=== PATIENT | male | born 1945 | race Caucasian/White ===

== ENCOUNTER 2018-06-16 06:25 | Inpatient (IN) | payer OTHER ==
[~2018-06-16] VITALS: Ht 180.3 cm; Wt 89.5 kg
[~2018-06-16 06:25] MED LIST: ALPRAZOLAM 0.50.5 M1 PO; ASPIR 8181 MG PO; ATROPINE 1%1 %/2 M1 OPHTHALMIC; BETIMOL15 ML OPHTHALMIC; CADUET 10 MG-21 EACH PO; CARVEDILOL25 MG PO; COZAAR 50 MG TA50 M2 PO; EYE ALLERGY REL15 ML OPHTHALMIC; FISH OIL 1,001000 M2 PO; GLUCOTROL5 MG PO; METFORMIN HCL500 MG PO; ONGLYZA5 MG PO
[2018-06-16 06:37] VITALS: BP 172/103
--- NOTE | 2018-06-16 07:45 | EKG ---
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1945 Requested By: Angie Kee Order Number: [id number] MD: Chucky Harding Measurements Intervals [place] Rate: 108 P: 47 CT: 166 QRS: -8 QRSD: 93 T: 54 QT: 342 QTc: 459 Interpretive Statements Sinus tachycardia Poor R wave progression Compared to ECG 12/29/2013 09:37:02 heart rate has increased Electronically Signed On 06-16-2018 7:45:33 STUNTMAN by Chucky Harding [email or web address] ��������������������������������������������� <ELECTRONICALLY SIGNED> ���������������������������������������� By: Chucky Harding MD, [facility] ��������������������������������������������� 06/16/18 0745 4 4 Chucky Harding MD, FACC /EPI
[2018-06-16] MEDS ORDERED: ATORVASTATIN CA40 MG PO (08:26)
[2018-06-16] MEDS ORDERED: NORVASC10 MG PO (08:28)
[2018-06-16] MEDS ORDERED: ACULAR 0.5% EYE5 ML OPHTHALMIC (08:36)
[2018-06-16 09:36] LABS: ABSOLUTE NEUTROPHILS 8.8 thou/uL (1.4-8.2); BASOPHILS 0.7 % (0.0-2.0); EOSINOPHILS 0.6 % (0.0-3.0); HEMATOCRIT 39.2 % (42.0-52.0); HEMOGLOBIN 13.3 gm/dL (14.0-18.0); LYMPHOCYTES 8.8 % (24.0-44.0); MCH 31.4 pg (26.0-34.0); MCV 92.2 fL (80.0-100.0); MONOCYTES 7.3 % (1.0-8.0); PLATELET COUNT 179 thou/uL (150-400); POLYS 82.6 % (36.0-66.0); RBC 4.25 mil/uL (4.50-6.00); RDW 14.2 % (10.5-14.5); WBC 10.7 thou/uL (4.0-11.0)
[2018-06-16 09:51] LABS: CHOLESTEROL 163 mg/dL (<200); HDL CHOLESTEROL 75 mg/dL (>40); LDL CHOLESTEROL 77 mg/dL (<100); TC:HDL 2.2 Ratio (Not establshd); TRIGLYCERIDE 59 mg/dL (<150); VLDL 12 mg/dL (<40)
[2018-06-16 09:52] LABS: ALBUMIN 2.3 g/dL (3.4-5.0); CALCIUM 8.6 mg/dL (8.5-10.1); CREATININE 2.4 mg/dL (0.7-1.3); POTASSIUM 4.8 mmol/L (3.5-5.1); TOTAL BILIRUBIN 0.4 mg/dL (<0.1-1.0); TOTAL PROTEIN 6.2 g/dL (6.4-8.2)
[2018-06-16 12:13] VITALS: BP 170/103
--- NOTE | 2018-06-16 12:45 | 2DMMODE ---
[facility] [address] [place] [address] 2 D/M-MODE ECHOCARDIOGRAM Name: MARIA C MARTIN CORDELL Room #: [facility] ..#: [id number] ������������� Admission: 06/16/18 ������������� Attend Phys: Arslan Chambers MD Discharge: ��� ������������� ��� Date of : 49 Date of Service: 06/16/18 1244 �� Report #: [id number] �������� ��������������������������������������������[id number] THIS REPORT FOR: //name// APPROVED REPORT Study performed: 06/16/2018 08:58:32 EXAM: Comprehensive 2D, Doppler, and color-flow Echocardiogram Patient Location: Bedside Room #: 211 Status: routine BSA: 2.10 HR: 116 bpm BP: 172/103 mmHg Rhythm: Tachycardia Other Information Study Quality: Adequate Risk Factors: Cardiac Risk Factors: HTN, Hyperlipidemia, DM Indications Dyspnea Elevated Troponin Cardiomyopathy 2D Dimensions IVSd: 12.37 (7-11mm) LVOT Diam: 21.00 (18-24mm) LVDd: 41.94 mm PWd: 11.72 (7-11mm) Ascending Ao: 35.46 (22-36mm) LVDs: 30.91 (25-40mm) Aortic Root: 30.94 mm LV Single Plane 4CH: 44.72 % LV Single Plane 2CH: 43.71 % Biplane EF: 44.1 % Volumes Left Atrial Volume (Systole) Single Plane 4CH: 59.55 mL Single Plane 2CH: 72.34 mL LA ESV Index: 33.00 mL/m2 Aortic Valve AoV Peak Neel.: 1.63 m/s AO Peak Gr.: 10.63 mmHg LVOT Max P.39 mmHg [facility] [address] [place] [address] 2 D/M-MODE ECHOCARDIOGRAM Name: MARIA C MARTIN Room #: 211[facility]P [facility]#: [id number] ������������� Admission: 06/16/18 ������������� Attend Phys: Arslan Chambers MD Discharge: ��� ������������� ��� Date of : 49 Date of Service: 06/16/18 1244 �� Report #: [id number] �������� ��������������������������������������������[id number] LVOT Max V: 0.77 m/s ZACHARY Vmax: 1.67 cm2 Mitral Valve E/A Ratio: 0.0 MV E Max Neel.: 1.40 m/s IVRT: 62.28 ms TDI E/Lateral E': 17.50 E/Medial E': 15.56 Medial E' Neel.: 0.09 m/s Lateral E' Neel.: 0.08 m/s Pulmonary Valve PV Peak Neel.: 1.38 m/s PV Peak Gr.: 7.57 mmHg Tricuspid Valve RAP Estimate: 7.00 mmHg Left Ventricle The left ventricle is normal size. Distal septal and apical hypokinesis. Mild concentric left ventricular hypertrophy. Left ventricular systolic function is mildly decreased. LVEF is 45%. Right Ventricle The right ventricle is normal size. The right ventricular systolic function is normal. Atria The left atrium size is normal. The right atrium size is normal. Aortic Valve The aortic valve is normal in structure. No aortic regurgitation is present. There is no aortic valvular stenosis. Mitral Valve Mild-moderate mitral annular calcification. Mild mitral regurgitation. No evidence of mitral valve stenosis. Tricuspid Valve The tricuspid valve is normal in structure. There is no tricuspid valve regurgitation noted. Pulmonic Valve [facility] [address] [place] [address] 2 D/M-MODE ECHOCARDIOGRAM Name: MARIA C MARTIN Room #: 211[facility]P [facility] M.R.#: [id number] ������������� Admission: 06/16/18 ������������� Attend Phys: Arslan Chambers MD Discharge: ��� ������������� ��� Date of : 49 Date of Service: 06/16/18 1244 �� Report #: [id number] �������� ��������������������������������������������[id number] The pulmonary valve is normal in structure. There is no pulmonic valvular regurgitation. Great Vessels The aortic root is normal in size. IVC is normal in size and collapses >50% with inspiration. Pericardium There is no pericardial effusion. <Conclusion> Left ventricular systolic function is mild-moderately decreased. Distal septal and apical hypokinesis. LVEF 45%. The aortic valve is normal in structure. No aortic regurgitation or stenosis Mild-moderate mitral annular calcification. Mild mitral regurgitation. Pulmonary artery pressure could not be reliably ascertained There is no pericardial effusion. ��������������������������������������������� <ELECTRONICALLY SIGNED> ���������������������������������������� By: Chucky Harding MD, [facility] ��������������������������������������������� 06/16/18 1244 1244 1244 Chucky Harding MD, FAC /INF
--- NOTE | 2018-06-16 15:31 | NUR ---
VSS REMAINS NSR TO ST 90-110, BP 170'S/90-100, LUNGS REMAIN WHEEZY, O2 SAT 2L IS 93%, PT STILL HAS COUGH, BACK PAIN RELIEVED WITH TYLENOL WITH CODEINE. UP IN ROOM INDEPENDENTLY AND NO C/O CHEST PAIN. WILL CONTINUE TO MONITER AND CARE FOR PTPER PLAN OF CARE
[2018-06-16 16:41] VITALS: BP 170/97
[2018-06-16 20:17] VITALS: BP 170/95
[2018-06-16 23:07] LABS: GLYCOHEMOGLOBIN (HGB A1C) 6.1 % (4.8-5.6)
--- NOTE | 2018-06-16 23:55 | NUR ---
PT CARE ASSUMED APPROX 1900. PT ALERT AND ORIENTED X4. DENIES SOA AND CHEST PAIN BUT C/O 8/10 HEADACHE PAIN. PAIN MANAGED WITH TYLENOL 3. PT REPORTS NAUSEA WELL. NAUSEA MANAGED WITH ZOFRAN. BP SLIGHTLY ELEVATED BUT TREND MUCH IMPROVED. VS OTHERWISE STABLE. BS ELEVATED AT HS. SSI USED TO MANAGE. UP WITH STEADY GAIT. PT CARE TO BE TRANSFERRED TO ONCOMING NURSE AT 0100. NO PT DISTRESS NOTED.
[2018-06-17 00:46] VITALS: BP 169/85
[2018-06-17 03:44] LABS: ALBUMIN 2.1 g/dL (3.4-5.0); CALCIUM 8.9 mg/dL (8.5-10.1); CREATININE 2.6 mg/dL (0.7-1.3); MAGNESIUM 1.7 mg/dL (1.8-2.4); POTASSIUM 5.2 mmol/L (3.5-5.1); TOTAL BILIRUBIN 0.5 mg/dL (<0.1-1.0); TOTAL PROTEIN 5.8 g/dL (6.4-8.2)
[2018-06-17 03:56] LABS: TROPONIN-I 21.77 ng/mL (<0.06)
[2018-06-17 04:12] VITALS: BP 189/118
--- NOTE | 2018-06-17 06:00 | NUR ---
ASSUMED PT CARE AT 0115. REPORT RECEIVED FROM ALIDA AARON. AM REASSESSMENT PT DENIES ANY CHEST PAIN. NOTED BP 189/118 LEFT ARM WITH NEAR SIMILAR VALUE IN THE RIGHT ARM. CRITICAL TROP CALLED AT 21.77 DID SPEAK WITH FISH PITCHER AND WITH DR. BUNN. BLOOD PRESSURE AND TROP VALUE REPORTED. ORDERS RECEIVED. CONTINUE TO MONITOR.
[2018-06-17 07:13] VITALS: BP 186/108
--- NOTE | 2018-06-17 09:17 | EKG ---
[address] [address] ELECTROCARDIOGRAM REPORT Name: MARIA C MARTIN Room #: 211-P ADM IN M.R.#: [id number] ������������������ Admission: 06/16/18 ������������������ Attend Phys: Arslan Chambers MD Discharge: ������������������ Date of : 49 Report #: [id number] ����������������������������������������������������������������� [id number] THIS REPORT FOR: //name// 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1945 Requested By: Chucky Harding Order Number: [id number] MD: Chucky Harding Measurements Intervals [place] Rate: 99 P: 45 DC: 160 QRS: -5 QRSD: 87 T: 52 QT: 352 QTc: 452 Interpretive Statements Sinus rhythm Poor R wave progression Compared to ECG 06/16/2018 07:25:08 Myocardial infarct finding now present Sinus tachycardia no longer present Electronically Signed On 06-17-2018 9:17:24 FACTORY CLERK by Chucky Harding [email or web address] ��������������������������������������������� <ELECTRONICALLY SIGNED> ���������������������������������������� By: Chucky Harding MD, [facility] ��������������������������������������������� 06/17/18916 1 1 Chucky Harding MD, [facility] /EPI
[2018-06-17 11:25] VITALS: BP 153/87
--- NOTE | 2018-06-17 14:03 | NUR ---
ORDERS RECEIVED FOR EVAL AND TREAT. OBSERVED Pt STAND AND AMBULATE IN ROOM WITHOUT ANY DIFFICULTY. Pt STATES HE FEELS FINE WITH REGARD TO HIS STRENGTH AND MOBILITY. DECLINING A FORMAL P.T. EVAL BUT Pt APPEARS SAFE FOR HOME WHEN MEDICALLY CLEAR
[2018-06-17 15:44] VITALS: BP 152/91
--- NOTE | 2018-06-17 16:53 | NUR ---
PT CARE ASSUMED APPROX 0700. PT ALERT AND ORIENTED X4.DENIES PAIN AND SOA. VSS. BS ELEVATED THIS SHIFT. CONTROLLING BS WITH SSI. PT UP WITH STEADY GAIT. IV ABT REMAINS IN POC. NITRO PASTE ON. AT BEDSIDE MOST OF SHIFT, NOT AT THIS TIME. BOTH DENIES QUESTIONS OR CONCERNS REGARDING POC. NO DISTRESS NOTED.
--- NOTE | 2018-06-17 18:39 | HC ---
[facility] [place] [address] CONSULTATION Name: MARIA C MARTIN Room #: 211-P [facility] IN M.R.#: [id number] Admission: 06/16/18 ������������������ Attend Phys: Arslan Chambers MD Discharge: ������������������ Date of : 49 Report #: [id number] THIS REPORT FOR: //name// CC: Arslan Chambers Physician staff Theo Juarez REASON FOR CONSULTATION: I was asked to evaluate concerning pneumonia in the setting of cardiac ischemia. HISTORY OF PRESENT ILLNESS: The patient is a 72-year-old with underlying history of coronary artery disease, hypertension, chronic kidney disease, diabetes, who has had a 1-week history of sinus congestion, postnasal drip, cough and progressive shortness of breath. Over the last 3 days, the patient has had intermittent episodes of back pain. He noticed that this onset was after he took an clib-hlh-qlcotnh cold medicine. Initially lasted about 3 hours. When he took a second dose of medication it happened again, but this time it did not improve and he was brought in through the Emergency Room first at [place] and then transferred to [facility] for non-STEMI. He continues to have a mid posterior back discomfort. He has been evaluated by Cardiovascular medicine. No further cardiac intervention was recommended other than placed on nitrates. He has had no documented fever. He has had no chills or sweats. He does require 2 liters of oxygen per nasal cannula, which is new for him. He reports his pain to be bxfu-gq-eelevsoa in degree with no radiation. He has had no pain in his jaw or left arm. He has had one episode of nausea with emesis. This was after he received the morphine. He has had cough with occasional blood tinge. The cough has expectorated mostly brown colored sputum. He has had mild epistaxis, some postnasal drip. No dental issues, the patient wears dentures. He has had no trauma. He has reported no pleuritic chest pain. Denies any travel. His has had an upper respiratory tract infection around the time of his illness. He has been exposed to no young children. He had 3 previous pneumonias. ALLERGIES: CONTRAST DYE, SULFA. MEDICATIONS: As noted on his MAR, now on azithromycin and ceftriaxone. 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 He is edentulous. He has had tonsillectomy. Carpal tunnel syndrome, status post release as well as ulnar release on the left. FAMILY HISTORY: Noncontributory. SOCIAL HISTORY: He is a past smoker. No significant alcohol intake. [facility] [address] [place] [address] CONSULTATION Name: MARIA C MARTIN Room #: 211-P [facility] IN M.R.#: [id number] Admission: 06/16/18 ������������������ Attend Phys: Arslan Chambers MD Discharge: ������������������ Date of : 49 Report #: [id number] REVIEW OF SYSTEMS: Ten-point review was negative other than what has been described above. PHYSICAL EXAMINATION: VITAL SIGNS: He was afebrile, temperature was 98 degrees, blood pressure 172/103, heart rate 110, respiratory rate 24, on 2 liters of oxygen per nasal cannula. GENERAL: He is alert and cooperative and pleasant, in no acute distress. He was able to communicate well. No dyspnea during my evaluation was noted. He appeared his stated age. HEENT: He had ____ of his cornea on the left. Right eye was unremarkable with no conjunctivitis or scleral icterus. Mouth edentulous with no mucositis. NECK: Supple with no thyromegaly, mass, or JVD. SKIN: Without rash or decubitus. He had some scarring to his anterior tibial regions bilaterally. No palpable adenopathy. LUNGS: Scattered fine rhonchi heard posterior bases as well as left anterior lower chest. No rub. HEART: Tachycardic, regular without appreciable murmur, gallop or rub. ABDOMEN: Soft, nontender, no hepatosplenomegaly or mass. GENITORECTAL: Not performed. EXTREMITIES: 1+ peripheral edema on the right, trace on the left. Pulses in his feet were normal. He had high arches with some pressure calluses involving his metatarsal heads 4 and 5. Sensation intact. Cranial nerves intact. Mood was normal. LABORATORY STUDIES: Chest x-ray is pending. Troponin is 1.6, sodium 141, potassium 4.8, bicarbonate 20, creatinine 2.4, AST was 45. Hemoglobin 13.3, platelet count of 179,000, white count was 10.7. Differential was 82% segs, 8% lymphs, 7% monocytes. EKG, poor R-wave progression. IMPRESSION: A 72-year-old with suspected community-acquired pneumonia complicated by hypertension and non-STEMI. He has chronic kidney disease. He has diabetes. RECOMMENDATIONS: We will continue IV antibiotic therapy with azithromycin, ceftriaxone and add Tamiflu. Obtain sputum culture, urine antigens. Continue treatment in the CCU. Follow up chest x-ray. We will screen for viral respiratory panel. Influenza antigen will be done as well. ��������������������������������������������� <ELECTRONICALLY SIGNED> ���������������������������������������� By: Tong Grijalva MD ��������������������������������������������� 06/17/18 1839 1126 2157 Tong Grijalva MD /azra
[2018-06-17 19:52] VITALS: BP 176/106
[2018-06-18 00:09] VITALS: BP 165/105
[2018-06-18 04:09] VITALS: BP 172/110
[2018-06-18 04:14] LABS: CALCIUM 8.2 mg/dL (8.5-10.1); CREATININE 3.1 mg/dL (0.7-1.3); POTASSIUM 4.7 mmol/L (3.5-5.1)
--- NOTE | 2018-06-18 05:42 | NUR ---
ASSUMED CARE OF PATIENT AT 1900. BP ELEVATED THROUGH THE NIGHT. TREATED WITH CLONIDINE, LITTLE TO NO EFFECT. DENIES PAIN RELATED TO MA. UP AD NEMESIO TO BATHROOM. EDUCATED ON MEDICATIONS BEING GIVEN. WORKING TOWARDS POC GOALS.
[2018-06-18 07:19] VITALS: BP 180/101
--- NOTE | 2018-06-18 08:37 | EKG ---
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1945 Requested By: Chucky Harding Order Number: [id number] MD: Chucky Harding Measurements Intervals [place] Rate: 88 P: 14 [place]: 145 QRS: -12 QRSD: 92 T: 54 QT: 350 QTc: 424 Interpretive Statements Sinus rhythm Atrial premature complex Poor R wave progression Compared to ECG 06/17/2018 07:12:49 Atrial premature complex(es) now present Electronically Signed On 06-18-2018 8:37:45 [employer] by Chucky Harding [email or web address] ��������������������������������������������� <ELECTRONICALLY SIGNED> ���������������������������������������� By: Chucky Harding MD, [facility] ��������������������������������������������� 06/18/18 0837 9 9 Chucky Harding MD, [facility] /EPI
[2018-06-18 11:40] VITALS: BP 148/92
[2018-06-18 15:25] VITALS: BP 166/97
[2018-06-18 15:46] LABS: URINE BILIRUBIN NEGATIVE (Negative); URINE BLOOD 1+ (Negative); URINE CLARITY CLEAR; URINE COLOR YELLOW; URINE GLUCOSE-RANDOM* 1+ (Negative); URINE KETONES NEGATIVE (Negative); URINE LEUKOCYTES NEGATIVE (Negative); URINE NITRITE NEGATIVE (Negative); URINE PROTEIN (DIPSTICK) 2+ (Negative); URINE UROBILINOGEN 0.2 E.U./dl (0.2-1.0)
[2018-06-18 15:54] LABS: PROT/CREAT RATIO 4.7; URINE CREATININE-RANDOM* 67.5 mg/dL; URINE PROTEIN-RANDOM* 317.8 mg/dL (<11.9)
[2018-06-18 15:56] LABS: SQUAMOUS 0-3 Few /LPF (0-3); URINE WBC 0-5 Rare /HPF (0-5)
[2018-06-18 15:57] LABS: BACTERIA None Seen /HPF (None Seen); CRYSTALS None Seen /LPF (None Seen); HYALINE CASTS 0-3 Few /LPF (None Seen); URINE RBC 0-2 Rare /HPF (0-2)
[2018-06-18 19:24] VITALS: BP 160/88
--- NOTE | 2018-06-18 19:51 | NUR ---
ASSUMED PATIENT CARE THIS AM. PATIENT LYING IN BED, A&O. ROOM AIR. UP AD NEMESIO. TOLERATING DIET. NO N/V, N/T OR PAIN STATED.
[2018-06-19 04:28] VITALS: BP 162/95
[2018-06-19 05:23] LABS: ALBUMIN 1.7 g/dL (3.4-5.0); CALCIUM 8.7 mg/dL (8.5-10.1); CREATININE 2.9 mg/dL (0.7-1.3); PHOSPHORUS 4.3 mg/dL (2.5-4.9); POTASSIUM 4.3 mmol/L (3.5-5.1)
--- NOTE | 2018-06-19 05:35 | NUR ---
pt resting quietly in room, vss, prn pain med given this am for c/o headache, will con't to monitor per ppoc.
[2018-06-19 08:00] VITALS: BP 166/77
[2018-06-19] MEDS ORDERED: CEFDINIR300 MG PO (14:29)
[2018-06-19] MEDS ORDERED: BENICAR40 MG PO (15:20)
[2018-06-19] MEDS ORDERED: IMDUR 60 MG TAB60 M1 PO (15:20)
[2018-06-19 15:31] VITALS: BP 166/77
--- NOTE | 2018-06-19 16:11 | NUR ---
ASSESSMENTS COMPLETED AND DOCUMENTED. NO S/SX OF RESP OR CARDIAC DISTRESS. PT DISCARGED TO HOME WITH SPOUSE. ALL BELONGINGS WITH PT AND DISCHARGE INSTRUCTIONS GIVEN. RX CALLED INTO [facility] IN [place]. IV AND TELE REMOVED.
--- NOTE | 2018-06-19 16:40 | EKG ---
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1945 Requested By: Chucky Harding Order Number: [id number] MD: Leonid Rogers Measurements Intervals [place] Rate: 88 P: 7 W[place]: 146 QRS: -17 QRSD: 91 T: 50 QT: 355 QTc: 430 Interpretive Statements Sinus rhythm Borderline left axis deviation Borderline T wave abnormalities Compared to ECG 06/18/2018 07:10:00 T-wave abnormality now present Atrial premature complex(es) no longer present Poor R-wave progression no longer present Electronically Signed On 06-19-2018 16:39:55 GRADUATE RN by Leonid Rogers [email or web address] ��������������������������������������������� <ELECTRONICALLY SIGNED> ���������������������������������������� By: Leonid Rogers MD ��������������������������������������������� 06/19/18 1639 0659 0659 Leonid Rogers MD /EPI
[2018-06-19 23:09] LABS: ADENOVIRUS Negative (Negative); INFLUENZA A Negative (Negative); INFLUENZA B Negative (Negative); METAPNEUMOVIRUS Negative (Negative); PARAINFLUENZA 1 Negative (Negative); PARAINFLUENZA 2 Negative (Negative); PARAINFLUENZA 3 Negative (Negative); RHINOVIRUS Negative (Negative); RSV A Negative (Negative); RSV B Negative (Negative)
--- NOTE | 2018-06-20 11:28 | HC ---
[facility] [place] [address] [place] [address] CONSULTATION Name: MARIA C MARTIN Room #: 211-P [facility] IN ..#: [id number] Admission: 06/16/18 ������������������ Attend Phys: Arslan Chambers MD Discharge: 06/19/18 ������������������ Date of : 49 Report #: [id number] THIS REPORT FOR: //name// CC: Arslan Chambers Physician staff Theomoises Juarez DATE OF SERVICE: 06/18/2018 REASON FOR CONSULTATION: Acute and chronic kidney disease. HISTORY OF PRESENT ILLNESS: A 72-year-old patient with longstanding diabetes, prior TN in 2003, prior coronary stents at this hospital. Had a subsequent heart catheterization 5-6 years ago at this hospital, which showed some chronic blockages, but no intervention. The patient developed an upper respiratory infection, had back pain, which was felt to be an anginal equivalent; was admitted to this hospital, was found to have a non-ST elevation TN with elevated troponin all the way to almost 22 and has chronic kidney disease followed by Dr. Souza in [place] with a baseline creatinine of 2.5-3. Apparently, the EKG did not show acute findings. Echocardiogram performed by Dr. Harding showed left ventricular ejection fraction of 45% with distal septal and apical hypokinesis. No valvular disease was noted. Currently, the patient's creatinine is 3.1 and we are seeing him for evaluation. 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 He has had hypertension, diabetes and CKD as mentioned above. SOCIAL HISTORY: Remarkable for a former smoker. No substantial alcohol. He is retired, but stays very active. FAMILY HISTORY: Remarkable only for hypertension. REVIEW OF SYSTEMS: GENERAL: He has been feeling reasonably well until this acute illness. EYES: He has good vision in the right eye, none on the left. ENT: Hearing okay, swallows okay. No mouth sores. ENDOCRINE: Positive for diabetes. RESPIRATORY: No shortness of breath, wheezing or asthma. CARDIAC: Back pain. No chest pain, a little bit of swelling in the legs. GASTROINTESTINAL: No nausea, vomiting, diarrhea, bloody stools. GENITOURINARY: He has had a history of renal stone x 3 in the past. No hematuria, dysuria or history of urinary tract infection. Urinary stream is fairly good. [facility] [address] [place] [address] CONSULTATION Name: MARIA C MARTIN Room #: 211-P [facility] IN .R.#: [id number] Admission: 06/16/18 ������������������ Attend Phys: Arslan Chambers MD Discharge: 06/19/18 ������������������ Date of : 49 Report #: [id number] NEUROLOGIC: No seizure, syncope or stroke. MUSCULOSKELETAL: No arthritis. PHYSICAL EXAMINATION: GENERAL: A reasonably well-appearing gentleman giving a very good history, calm and in no acute distress. SKIN: Unremarkable. SKELETAL: Well developed, well nourished. HEENT: Blind in the left eye, clouded over. Mucous membranes moist. Tongue, buccal mucosa benign. NECK: Supple, no carotid bruits or lymphadenopathy. CHEST: Clear to auscultation. HEART: Regular without murmurs, gallops or rubs. ABDOMEN: Soft and nontender, without bruits, masses or organomegaly. EXTREMITIES: Show trace peripheral edema. NEUROLOGIC: Grossly intact. LABORATORY DATA: No urinalysis that will be sent. Hemoglobin is 13.3, white count 10.7, platelets 179. Sodium 137, potassium 4.7, chloride 107, bicarbonate 20, BUN 55, creatinine 3.1. ASSESSMENT AND PLAN: 1. Chronic kidney disease. He has chronic kidney disease, apparent diabetic nephropathy. I will check urinalysis and urine protein studies, paraprotein for completeness. Consideration also for renal sonogram. I suspect that he would benefit from heart catheterization and despite the risks to his kidneys, we probably should proceed with minimal dye, IV fluids and we will hold the olmesartan in the meantime and this will be discussed with Dr. Harding. 2. Longstanding diabetes with chronic kidney disease. 3. Hypertension. Blood pressure is up a bit. I will add an alpha lamberto. 4. History of blindness in the left eye. 5. History of nephrolithiasis. ��������������������������������������������� <ELECTRONICALLY SIGNED> ���������������������������������������� By: Romeo Wong MD ��������������������������������������������� 06/20/18 1128 1049 20 Romeo Wong MD /nt
[2018-06-20 15:10] LABS: KAPPA FREE LIGHT CHAINS 79.5 mg/L (3.3-19.4); KAPPA/LAMBDA RATIO 1.89 (0.26-1.65); LAMBDA FREE LIGHT CHAINS 42.1 mg/L (5.7-26.3)
== END 2018-06-19 16:22 | disposition home or self-care (01) | DRG 280 ==
LOC: 2N 06:25 → ENTRNSPT 06-19 16:07 → 2N 06-19 16:22
PROVIDERS: Internal Medicine; Internal Medicine Nephrology; Specialist; ADMIT Hospitalist
DX: I21.4 Non-ST elevation (NSTEMI) myocardial infarction (principal); J18.9 Pneumonia, unspecified organism; I42.9 Cardiomyopathy, unspecified; N18.4 Chronic kidney disease, stage 4 (severe); E46 Unspecified protein-calorie malnutrition; N17.9 Acute kidney failure, unspecified; E78.5 Hyperlipidemia, unspecified; H54.62 Unqualified visual loss, left eye, normal vision right eye; E11.22 Type 2 diabetes mellitus with diabetic chronic kidney disease; E83.42 Hypomagnesemia; I12.9 Hypertensive chronic kidney disease with stage 1 through stage 4 chronic kidney disease, or unspecified chronic kidney disease; R27.0 Ataxia, unspecified; I25.10 Atherosclerotic heart disease of native coronary artery without angina pectoris; Z88.2 Allergy status to sulfonamides; Z91.041 Radiographic dye allergy status; I25.2 Old myocardial infarction; Z95.5 Presence of coronary angioplasty implant and graft; Z87.891 Personal history of nicotine dependence; Z82.49 Family history of ischemic heart disease and other diseases of the circulatory system; Z87.442 Personal history of urinary calculi; Z79.82 Long term (current) use of aspirin; Z79.899 Other long term (current) drug therapy; Z68.27 Body mass index [BMI] 27.0-27.9, adult
CPT/HCPCS: 10081; 10797